=== PATIENT | female | born 1990 | race Caucasian/White ===

== ENCOUNTER 2017-09-17 09:33 | Emergency (ER) | payer BC, OTHER ==
[~2017-09-17] VITALS: Ht 165.1 cm; Wt 141.0 kg
[~2017-09-17 09:33] MED LIST: ALPR1 PO; DOCU100S PO; LORTA5 PO; PROM25SU8 PO; Z.0.BCPILL PO
[2017-09-17 09:40] VITALS: BP 109/66; PULSE 98; RESP 18; TEMP 102.2; O2SAT 96
[2017-09-17] MEDS ORDERED: NAPR500T2 PO (09:57)
[2017-09-17] MEDS ORDERED: FERR140T PO (09:57)
[2017-09-17] MEDS ORDERED: TYLE325T PO (09:57)
[2017-09-17 10:02] VITALS: BP 107/51; PULSE 96; RESP 18; TEMP 102.2; O2SAT 98
--- NOTE | 2017-09-17 10:05 | PD ---
HPI Chief Complaint: Syncope/Near-Syncope Time Seen by Provider: 09:49 Travel History International Travel<30 days: No Contact w/Intl Traveler<30days: No Traveled to known affect area: No History of Present Illness HPI This 27-year-old female apparently had a syncopal episode. She was at the orthopedic doctor's office. She was there For possible surgery on her right knee because of a torn meniscus. She's been having fever for about 9 days. She has not had a sore throat. She has a slight cough. She has some headache and body aches and myalgias. She has taken some Tylenol with some improvement. She had taken 650 mg of Tylenol about 2 hours ago she has not had any dysuria. She has been to see her doctor twice and has been told she has a virus. She has had syncope in the past. Today she felt like she was in a pass out. Her boyfriend says that she did have some shaking she was unresponsive for about a minute. There was no tongue biting or incontinence. She has been diagnosed as having low iron. She has heavy periods which are quite irregular. She has had fertility issues PFSH Past Medical History Cancer: No Cardiovascular Problems: No Diabetes: No Diminished Hearing: No Endocrine: No Genitourinary: No Hepatitis: No Hiatal Hernia: No Immune Disorder: No Musculoskeletal: Yes (right knee torn meniscus) Neurologic: No Psychiatric: No Reproductive: No Respiratory: No Immunizations Current: No Thyroid Disease: No Influenza Vaccination: No ?: Not LMP: STOPPED 4-5 DAYS AGO : 0 Past Surgical History AICD: No Gynecologic Surgery: Yes (RECTOVAGINAL FISTULA REPAIR 10/12/2013) Joint Replacement: No Oral Surgery: Yes (TONSILLS) Pacemaker: No Tonsillectomy: Yes Other Surgery: Yes Social History Alcohol Use: Yes (OCC) Tobacco Use: No Substance Use: No Allergies-Medications (Allergen,Severity, Reaction): Coded Allergies: No Known Allergies (Unverified Adverse Reaction, Unknown, 09/17/17) Reported Meds & Prescriptions Reported Meds & Active Scripts Active Reported Ferrous Sulfate ER (Ferrous Sulfate) 140 Mg (45 Mg Iron) Tab 140 Mg PO DAILY Naproxen 500 Mg Tab 500 Mg PO BID Tylenol (Acetaminophen) 325 Mg Tab 650 Mg PO Q4H PRN Review of Systems General / Constitutional: Positive: Fever, Chills Eyes: No: Diploplia, Blurred Vision HENT: Positive: Headaches, No: Vertigo, Lightheadedness Cardiovascular: No: Chest Pain or Discomfort Respiratory: Positive: Cough, No: Shortness of Breath Gastrointestinal: No: Nausea, Vomiting Genitourinary: No: Urgency, Frequency Musculoskeletal: Positive: Myalgias, Arthralgias Skin: No Rash, No Itching Neurologic: Positive: Syncope, Tremor, No: Weakness Psychiatric: No: Disorder of Thought Hematologic/Lymphatic: No: Easy Bruising Physical Exam Narrative GENERAL: Well-developed female SKIN: Focused skin assessment warm/dry. HEAD: Atraumatic. Normocephalic. EYES: Pupils equal and round. No scleral icterus. No injection or drainage. ENT: No nasal bleeding or discharge. Mucous membranes pink and moist. NECK: Trachea midline. No JVD. CARDIOVASCULAR: Regular rate and rhythm. No murmur appreciated. RESPIRATORY: No accessory muscle use. Clear to auscultation. Breath sounds equal bilaterally. GASTROINTESTINAL: Abdomen soft, non-tender, nondistended. Hepatic and splenic margins not palpable. MUSCULOSKELETAL: No obvious deformities. No clubbing. No cyanosis. No edema. NEUROLOGICAL: Awake and alert. No obvious cranial nerve deficits. Motor grossly within normal limits. Normal speech. PSYCHIATRIC: Appropriate mood and affect; insight and judgment normal. Data Data Last Documented VS Vital Signs Date Time Temp Pulse Resp B/P (MAP) Pulse Ox O2 Delivery O2 Flow Rate FiO2 09/17/17 11:16 98.6 82 18 109/47 (67) 97 Room Air Orders Orders Electrocardiogram (09/17/17 10:00) Complete Blood Count With Diff (09/17/17 10:00) Comprehensive Metabolic Panel (09/17/17 10:00) Blood Culture (09/17/17 10:00) Urinalysis - C+S If Indicated (09/17/17 10:00) Influenzae A/B Antigen (09/17/17 10:00) Chest, Single Ap (09/17/17 10:00) Lactic Acid Sepsis Protocol (09/17/17 10:00) Sodium Chlor 0.9% 1000 Ml Inj (Ns 1000 M (09/17/17 10:15) Ketorolac Inj (Toradol Inj) (09/17/17 10:15) Ed Urine Pregnancytest Poc (09/17/17 10:13) Urine Culture (09/17/17 10:05) Labs Laboratory Tests Test 09/17/17 10:05 09/17/17 10:20 09/17/17 10:25 Urine Collection Type CLEAN CATCH Urine Color YELLOW Urine Turbidity MOD Urine pH 5.5 Urine Specific [place] 1.033 Urine Protein 30 mg/dL Urine Glucose (UA) NEG mg/dL Urine Ketones TRACE mg/dL Urine Occult Blood LARGE Urine Nitrite NEG Urine Bilirubin NEG Urine Leukocyte Esterase TRACE Urine RBC 0-3 /hpf Urine WBC 3-5 /hpf Urine Squamous Epithelial Cells 6-8 /hpf Urine Bacteria MANY /hpf Urine Waxy Casts 3-5 /lpf Microscopic Urinalysis Comment CULTURE INDICATED White Blood Count 7.9 TH/MM3 Red Blood Count 4.01 MIL/MM3 Hemoglobin 9.1 GM/DL Hematocrit 29.0 % Mean Corpuscular Volume 72.3 FL Mean Corpuscular Hemoglobin 22.6 PG Mean Corpuscular Hemoglobin Concent 31.3 % Red Cell Distribution Width 14.9 % Platelet Count 263 TH/MM3 Mean Platelet Volume 8.0 FL CBC Comment AUTO DIFF Differential Total Cells Counted 100 Neutrophils % (Manual) 59 % Band Neutrophils % 14 % Lymphocytes % 21 % Monocytes % 3 % Eosinophils % 3 % Neutrophils # (Manual) 5.8 TH/MM3 Differential Comment FINAL DIFF MANUAL Platelet Estimate NORMAL Platelet Morphology Comment NORMAL Basophilic Stippling FAINT Rouleau PRESENT Blood Urea Nitrogen 8 MG/DL Creatinine 0.91 MG/DL Random Glucose 99 MG/DL Total Protein 7.7 GM/DL Albumin 3.3 GM/DL Calcium Level 8.1 MG/DL Alkaline Phosphatase 174 U/L Aspartate Amino Transf (AST/SGOT) 44 U/L Alanine Aminotransferase (ALT/SGPT) 43 U/L Total Bilirubin 0.3 MG/DL Sodium Level 134 MEQ/L Potassium Level 3.5 MEQ/L Chloride Level 102 MEQ/L Carbon Dioxide Level 25.7 MEQ/L Anion Gap 6 MEQ/L Estimat Glomerular Filtration Rate 75 ML/MIN Lactic Acid Level 1.8 mmol/L [facility] Medical Decision Making Medical Screen Exam Complete: Yes Emergency Medical Condition: Yes Medical Record Reviewed: Yes Differential Diagnosis Differential includes viral syndrome, dehydration, pneumonia, UTI Narrative Course EKG shows normal sinus rhythm. Urine is negative for infection. Chest x-ray is negative. White count is 7000. Influenza test is negative. Patient has a temperature 102 suspect this is a viral illness. It has been going on for a long time and we'll recommend continuing Tylenol and ibuprofen. Follow up with Dr. Zurita Diagnosis Primary Impression: Viral syndrome Additional Instructions: Rest, force fluids, take Tylenol and Motrin for fever, follow-up with Dr. Zurita Disposition: 01 DISCHARGE HOME Condition: Stable Qasim Zhou MD Sep 17, 2017 10:05
[2017-09-17] MEDS ORDERED: SODIUM CHLOR 0.9% 1000 ML INJ 1,000 ML IV ONE (10:15)
[2017-09-17] MEDS ORDERED: KETOROLAC TROMETHAMINE 30 MG/ML (IVP) VIAL IV PUSH ONE (10:15)
[2017-09-17 10:18] LABS: BLOOD, URINE LARGE (NEG); GLUCOSE,URINE NEG (NEG); KETONE, URINE TRACE mg/dL (NEG); NITRITE,URINE NEG (NEG); PH, URINE 5.5 (5.0-8.5); URINE LEUKOCYTE ESTERASE TRACE (NEG)
[2017-09-17 10:24] LABS: BILIRUBIN, URINE NEG (NEG); URINE COLOR YELLOW (YELLW/STRAW)
--- NOTE | 2017-09-17 10:24 | RADRPT ---
EXAM DATE/TIME: 09/17/2017 10:10 [facility] COMPARISON: No previous studies available for comparison. INDICATIONS : Fever x 10 days, syncopal episode, possible seizure. MEDICAL HISTORY : Torn right meniscus. SURGICAL HISTORY : Tonsillectomy. Recto-vaginal fisturla repair. ENCOUNTER: Initial ACUITY: 1 day PAIN SCORE: 0/10 LOCATION: chest FINDINGS: A single view of the chest demonstrates the lungs to be symmetrically aerated without evidence of mas s, infiltrate or effusion. The cardiomediastinal contours are unremarkable. Osseous structures are intact. CONCLUSION: No acute disease. Sammy Reyes MD on September 17, 2017 at 10:22 Board Certified Radiologist. This report was verified electronically.
[2017-09-17 10:28] LABS: RBC, URINE 0-3 /hpf (0-3)
[2017-09-17 10:29] LABS: BACTERIA, URINE MANY /hpf
[2017-09-17 10:42] LABS: HEMOGLOBIN 9.1 GM/DL (11.6-15.3); MEAN CELL VOLUME 72.3 FL (80.0-100.0); MEAN CORPUSCULAR HEMOGLOBIN 22.6 PG (27.0-34.0); MEAN CORPUSCULAR HGB CONC 31.3 % (32.0-36.0); PLATELET COUNT 263 TH/MM3 (150-450); RED BLOOD COUNT 4.01 MIL/MM3 (4.00-5.30); RED CELL DISTRIBUTION WIDTH 14.9 % (11.6-17.2); WHITE BLOOD COUNT 7.9 TH/MM3 (4.0-11.0)
[2017-09-17 10:45] LABS: CHLORIDE 102 MEQ/L (98-107); SODIUM (NA) 134 MEQ/L (136-145)
[2017-09-17 10:49] LABS: ALBUMIN 3.3 GM/DL (3.4-5.0); BICARBONATE 25.7 MEQ/L (21.0-32.0); BLOOD UREA NITROGEN 8 MG/DL (7-18); CALCIUM 8.1 MG/DL (8.5-10.1); GLUCOSE,RANDOM 99 MG/DL (74-106)
[2017-09-17 10:52] LABS: ALT (GPT) 43 U/L (10-53); AST (GOT) 44 U/L (15-37); CREATININE 0.91 MG/DL (0.50-1.00); GLOMERULAR FILTRATION RATE 75 ML/MIN (>89)
[2017-09-17 10:54] LABS: TOTAL BILIRUBIN ADULT 0.3 MG/DL (0.2-1.0); TOTAL PROTEIN 7.7 GM/DL (6.4-8.2)
[2017-09-17 10:55] LABS: ALKALINE PHOSPHATASE 174 U/L (45-117)
[2017-09-17 11:05] LABS: BANDS 14 % (0-6); LYMPHOCYTES 21 % (9-44); MONOCYTES 3 % (0-8); NEUTROPHIL # MANUAL DIFF 5.8 TH/MM3 (1.8-7.7); POLYS (SEG NEUTROPHILS) 59 % (16-70)
[2017-09-17 11:06] LABS: ROULEAUX PRESENT (NORMAL)
[2017-09-17 11:16] VITALS: BP 109/47; PULSE 82; RESP 18; TEMP 98.6; O2SAT 97
--- NOTE | 2017-09-18 13:08 | EKG ---
Date Performed: 09/17/2017 Time Performed: 10:12:16 PTAGE: 27 years EKG: Sinus rhythm NORMAL ECG NO PREVIOUS TRACING DOCTOR: Jonathan Foote Interpretating Date/Time 09/18/2017 12:58:02
== END 2017-09-17 11:35 | disposition home or self-care (01) ==
LOC: PHED 09:33
DX: B34.9 Viral infection, unspecified (principal)
CPT/HCPCS: 71045; 80053; 81001; 83605; 84703; 85007; 85027; 87040; 87086; 87804; 93005; 96361; 96374; 99285; J1885; J7030